=== PATIENT | male | born 1960 | race Caucasian/White ===

== ENCOUNTER 2021-01-10 09:31 | Emergency (ER) | payer BC ==
--- NOTE | 2021-01-10 10:50 | EDM.PDOC ---
ED HPI GENERAL MEDICAL PROBLEM - General Chief Complaint: Respiratory Problem Stated Complaint: SOB Time Seen by Provider: 01/10/21 10:39 Source of Information: Reports: Patient History Limitations: Reports: No Limitations - History of Present Illness INITIAL COMMENTS - FREE TEXT/NARRATIVE: 60-year-old male presents to the ED in the company of his . 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 It is suspect that he has new lesions on CT scan done yesterday concerning for possible metastatic disease. He is still receiving chemotherapy. He has had radiation therapy to bones. Recent cryotherapy to one of his right ribs which contained a tumor with suspect irritation of the pleura and lung lining in this area. His dyspnea seems to be worse since that procedure was carried out by Dr. Parnell interventional radiologist in [place]. Is also had microwave treatments to liver metastatic disease. I suspect he is maxed out his radiotherapy doses. Has a slight cough in the mornings. No blood. No fever or chills. COVID-19 screen at the clinic this morning was negative. He had a CT scan of his chest done yesterday which we will try and obtain from [facility]. His main complaint is dyspnea and he has some insight that this is due to anxiety. His O2 sats are 94 to 96% on room air. Patient did have a Covid test yesterday was negative. Onset: Gradual (Has been having dyspneic events off and on for the last 3 to 4 weeks.) Onset Date: 12/15/20 Duration: Week(s):, Intermittent Location: Reports: Chest (With no chest pain) Quality: Reports: Other Severity: Moderate (Subjective dyspnea) Improves with: Reports: None Worsens with: Reports: Movement (Seems to be a little worse with movement) Context: Reports: Other (Dyspnea comes on even with rest.). Denies: Activity, Exercise, Lifting, Sick Contact, Trauma Associated Symptoms: Reports: Cough, Loss of Appetite, Malaise, Shortness of Breath, Weakness. 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: Other (see below) (Only his regular medications.) - Related Data Allergies Allergy/AdvReac Type Severity Reaction Status Date / Time chlorhexidine Allergy Itching Verified 01/10/21 10:05 Home Meds: Home Meds Furosemide 20 mg PO DAILY 01/10/21 [History] Furosemide 40 mg PO DAILY #30 tablet 01/10/21 [Rx] Gabapentin [Neurontin] 300 mg PO TID 01/10/21 [History] LORazepam [Ativan] 0.5 mg PO Q8H #21 tab 01/10/21 [Rx] Spironolactone [Aldactone] 25 mg PO ONETIME #30 tab 01/10/21 [Rx] dexAMETHasone [Dexamethasone] 4 - 6 mg PO Q8H 01/10/21 [History] oxyCODONE 5 mg PO ASDIRECTED PRN 01/10/21 [History] Past Medical History Oncologic (Cancer) History: Reports: Other (See Below) (Primary rectal adenocarcinoma diagnosed in 2013 with metastatic disease to his liver at that time. He subsequently had chemotherapy for 2 years and I believe radiation as well. Recurrence in the last 2 years and continues chemotherapy, radiation treatment at this time) - Past Surgical History GI Surgical History: Reports: Colostomy (Performed I believe in 2013 with rectal cancer with a abdominal perineal resection. He does have a fistula draining from his sacrum which is somewhat painful. Colostomy has been functioning well), Other (See Below) Other GI Surgeries/Procedures: rectal cancer 2013 Neurological Surgical History: Reports: Other (See Below) Other Neurological Surgeries/Procedures: 22 screws in his spine, spinal cancer Musculoskeletal Surgical History: Reports: Other (See Below) Other Musculoskeletal Surgeries/Procedures:: liver micro-wave oblation Social & Family History - Tobacco Use Tobacco Use Status *Q: Never Tobacco User Second Hand Smoke Exposure: No - Recreational Drug Use Recreational Drug Use: No - Living Situation & Occupation Living situation: Reports: Occupation: Employed ED ROS GENERAL - Review of Systems Review Of Systems: See Below Constitutional: Reports: Malaise, Weakness, Fatigue, Decreased Appetite, Weight Loss. Denies: Fever, Chills HEENT: Reports: Glasses Respiratory: Reports: Shortness of Breath, Cough (Occasional cough usually first thing is in the morning. Sputum normal color with no blood recently) Cardiovascular: Reports: Chest Pain (Right chest wall pain. Had a lesion in one of his ribs recently treated by cryoablation treatment by), Dyspnea on Exertion, Edema (Both lower extremities), Lightheadedness, Orthopnea. Denies: Blood Pressure Problem, Claudication ( IR in [place]), Palpitations Endocrine: Reports: Fatigue GI/Abdominal: Reports: Abdominal Pain, Constipation, Decreased Appetite, Nausea (Nasal problems with constipation.). Denies: Distension, Vomiting : Reports: Frequency, Other (Nocturia x1 usually.) Musculoskeletal: Reports: Neck Pain, Shoulder Pain, Back Pain (Particular upper neck where he has multiple hardware in his upper cervical spine and lower cervical spine from fusion procedure.), Other (12 pain due to metastatic disease to ribs.) Skin: Reports: Bruising (He states that he bruises a little easier than normal) Neurological: Reports: Dizziness, Difficulty Walking, Weakness. Denies: Confusion, Headache, Numbness, Syncope, Tingling Psychiatric: Reports: Depression Hematologic/Lymphatic: Reports: No Symptoms Immunologic: Reports: No Symptoms ED EXAM, GENERAL - Physical Exam Exam: See Below Exam Limited By: No Limitations General Appearance: Alert, WD/WN, Anxious, Mild Distress, Other (Temperature is 35.9 degrees. Heart rate 78 and sinus respiratory is 20 with O2 sats of 99% room air. BP 130/79) Eye Exam: Bilateral Eye: Normal Inspection (No blepharal pallor or scleral icterus), PERRL Throat/Mouth: Normal Inspection, Normal Lips, Normal Teeth, Normal Oropharynx Head: Atraumatic, Normocephalic Neck: Normal Inspection, Supple, Non-Tender, Full Range of Motion. No: Lymphadenopathy (L), Lymphadenopathy (R) Respiratory/Chest: Lungs Clear, Normal Breath Sounds, No Accessory Muscle Use, Respiratory Distress (Tachypnea at rest 20/min with O2 sats of 99%.), Other (Scarring left upper anterior chest from previous Port-A-Cath placement and removal. New Port-A-Cath is right upper anterior chest). No: Decreased Breath Sounds Cardiovascular: Normal Peripheral Pulses, Regular Rate, Rhythm, No Gallop, No Murmur, No Rub. No: No Edema Peripheral Pulses: 0: Posterior Tibial (L) (Ulcers in both lower extremities are obscured by significant edema both lower extremities), Posterior Tibial (R), Dorsalis Pedis (L), Dorsalis Pedis (R), 2+: Carotid (L), Carotid (R) GI/Abdominal: Normal Bowel Sounds, Soft, No Distention, Tender (Tenderness right costal margin with deep inspiration with palpation of his liver. Spleen is not palpable), Other (Ostomy right lower quadrant appears to be draining well.). No: Pelvis Stable, Distended, Guarding, Rigid, Rebound Back Exam: Normal Inspection, Full Range of Motion. No: CVA Tenderness (L), CVA Tenderness (R) Extremities: Normal Inspection, Normal Range of Motion, Non-Tender, Pedal Edema (3+ pitting edema both lower extremities slightly worse on the left as compared to the right.) Neurological: Alert, Oriented, CN II-XII Intact, Normal Cognition Psychiatric: Anxious Skin Exam: Warm, Dry, Intact, Normal Color, No Rash #1 Interpretation EKG Date: 01/10/21 Time: 11:16 Rhythm: NSR Rate (Beats/Min): 64 [place]: Normal P-Wave: Present QRS: Other (Mildly decreased voltage limb leads) ST-T: Other (Nonspecific T wave flattening aVL) QT: Normal EKG Interpretation Comments: Essentially normal ECG Course - Vital Signs Last Recorded V/S: Last Vital Signs Temp 35.9 C L 01/10/21 10:01 Pulse 78 01/10/21 10:01 Resp 20 01/10/21 10:01 BP 130/79 01/10/21 10:01 Pulse Ox 99 01/10/21 10:01 - Orders/Labs/Meds Labs: Laboratory Tests 01/10/21 01/10/21 01/10/21 Range/Units 11:14 11:14 11:14 WBC 7.48 (4.23-9.07) K/mm3 RBC 3.96 L (4.63-6.08) M/mm3 Hgb 12.6 L D (13.7-17.5) gm/dl Hct 40.1 (40.1-51.0) % MCV 101.3 H D (79.0-92.2) fl MCH 31.8 (25.7-32.2) pg MCHC 31.4 L (32.2-35.5) g/dl RDW Std Deviation 74.5 H (35.1-43.9) fL Plt Count 137 L D (163-337) K/mm3 MPV 10.4 (9.4-12.3) fl Neut % (Auto) 88.0 H (34.0-67.9) % Lymph % (Auto) 2.1 L (21.8-53.1) % [place] % (Auto) 9.0 (5.3-12.2) % Eos % (Auto) 0 L (0.8-7.0) Baso % (Auto) 0.0 L (0.1-1.2) % Neut # (Auto) 6.58 H (1.78-5.38) K/mm3 Lymph # (Auto) 0.16 L (1.32-3.57) K/mm3 [place] # (Auto) 0.67 (0.30-0.82) K/mm3 Eos # (Auto) 0.00 L (0.04-0.54) K/mm3 Baso # (Auto) 0.00 L (0.01-0.08) K/mm3 ESR (0-15) mm/hr PT 11.4 (9.7-12.0) SECONDS INR 1.03 APTT 25.8 (21.7-31.4) SECONDS Sodium 139 (136-145) mEq/L Potassium 3.8 (3.5-5.1) mEq/L Chloride 105 (98-107) mEq/L Carbon Dioxide 24 (21-32) mEq/L Anion Gap 13.8 (5-15) BUN 11 (7-18) mg/dL Creatinine 0.6 L (0.7-1.3) mg/dL Est Cr Clr Drug Dosing 115.19 mL/min Estimated GFR (MDRD) > 60 (>60) mL/min BUN/Creatinine Ratio 18.3 H (14-18) Glucose 189 H (70-99) mg/dL Calcium 8.6 (8.5-10.1) mg/dL Magnesium 1.9 (1.8-2.4) mg/dL Total Bilirubin 0.9 (0.2-1.0) mg/dL AST 39 H (15-37) U/L ALT 42 (16-63) U/L Alkaline Phosphatase 178 H (46-116) U/L Lactate Dehydrogenase 268 H (85-227) U/L Troponin I < 0.017 (0.00-0.056) ng/mL C-Reactive Protein 8.8 H* (<1.0) mg/dL NT-Pro-B Natriuret Pep (0-125) pg/mL Total Protein 6.0 L (6.4-8.2) g/dl Albumin 2.4 L (3.4-5.0) g/dl Globulin 3.6 gm/dL Albumin/Globulin Ratio 0.7 L (1-2) 01/10/21 01/10/21 Range/Units 11:14 11:14 WBC (4.23-9.07) K/mm3 RBC (4.63-6.08) M/mm3 Hgb (13.7-17.5) gm/dl Hct (40.1-51.0) % MCV (79.0-92.2) fl MCH (25.7-32.2) pg MCHC (32.2-35.5) g/dl RDW Std Deviation (35.1-43.9) fL Plt Count (163-337) K/mm3 MPV (9.4-12.3) fl Neut % (Auto) (34.0-67.9) % Lymph % (Auto) (21.8-53.1) % [place] % (Auto) (5.3-12.2) % Eos % (Auto) (0.8-7.0) Baso % (Auto) (0.1-1.2) % Neut # (Auto) (1.78-5.38) K/mm3 Lymph # (Auto) (1.32-3.57) K/mm3 [place] # (Auto) (0.30-0.82) K/mm3 Eos # (Auto) (0.04-0.54) K/mm3 Baso # (Auto) (0.01-0.08) K/mm3 ESR 53 H (0-15) mm/hr PT (9.7-12.0) SECONDS INR APTT (21.7-31.4) SECONDS Sodium (136-145) mEq/L Potassium (3.5-5.1) mEq/L Chloride (98-107) mEq/L Carbon Dioxide (21-32) mEq/L Anion Gap (5-15) BUN (7-18) mg/dL Creatinine (0.7-1.3) mg/dL Est Cr Clr Drug Dosing mL/min Estimated GFR (MDRD) (>60) mL/min BUN/Creatinine Ratio (14-18) Glucose (70-99) mg/dL Calcium (8.5-10.1) mg/dL Magnesium (1.8-2.4) mg/dL Total Bilirubin (0.2-1.0) mg/dL AST (15-37) U/L ALT (16-63) U/L Alkaline Phosphatase (46-116) U/L Lactate Dehydrogenase (85-227) U/L Troponin I (0.00-0.056) ng/mL C-Reactive Protein (<1.0) mg/dL NT-Pro-B Natriuret Pep 412 H (0-125) pg/mL Total Protein (6.4-8.2) g/dl Albumin (3.4-5.0) g/dl Globulin gm/dL Albumin/Globulin Ratio (1-2) Meds: Medications Discontinued Medications Generic Name Dose Route Start Last Admin Trade Name Freq PRN Reason Stop Dose Admin Dextrose/Lactated Ringer's 1,000 mls @ 100 mls/hr 01/10/21 11:45 Dextrose 5%-Lactated Ringers IV ASDIRECTED AURA - Radiology Interpretation Free Text/Narrative:: 60-year-old male presents to the ED for evaluation of dyspnea and he has some insight that this may be due to anxiety. Patient was diagnosed with rectal carcinoma in 2013 requiring abdominal perineal resection. He still has a draining fistula from his sacral area which is intermittently painful. He has a colostomy right lower quadrant which has been working well. He had spread of disease to his liver and more recently concerns for metastatic disease to his lungs. CTA of the chest was done yesterday at [facility] and we will try and obtain this report. He is also had ablation of a lesion in one of his lung ribs right side i.e. cryoablation by Dr. Parnell interventional radiologist in the last month and his dyspnea seemed to worsen since that time. Is also had microwave treatments to his liver in the hopes of destroying some of the metastatic disease. Appetite remains fair. My overall impression that there is a good deal of anxiety associate with current symptom complex of dyspnea today. He is tachypneic at 20/min but O2 sats are 99% on room air. Plan access his Port-A-Cath right upper anterior chest for labs. Solitary chest x-ray will be done today. - Re-Assessments/Exams Free Text/Narrative Re-Assessment/Exam: 01/10/21 11:34 x-ray reveals diffuse metastatic disease throughout both lung bonilla. No pleural effusions. Cardiac silhouette appears normal. Questionable multiple mediastinal lymph nodes in the perihilar areas bilaterally. 01/10/21 11:53 over read by radiologist of the chest x-ray reveals diffuse nodular densities seen within both sides of the chest. Focal masslike density is seen within the left upper chest. Masslike densities measure approximately 4.5 cm in size. Largest nodule measures approximately 2.0 cm. Previous surgery is seen within the lower cervical and upper thoracic spine. Right-sided infusion catheter appreciated heart size is normal. Patient did have a CT pulmonary angiogram done at the [facility] yesterday. No pulmonary embolism was identified. He also had Doppler ultrasound of both lower extremities which did not show any DVT. The CT did reveal extensive malignant burden throughout both lungs which is significantly worsened since the last CT of October 11, 2020. Possible new lymphangitic spread of metastatic disease on the left upper lobe and left lung base. The infiltrate in the left upper lobe could also represent conventional pneumonia. There is a new small left-sided pleural effusion. Trace right-sided pleural effusion enlarged hilar and mediastinal lymph nodes are malignant. Upper abdomen is negative extensive postoperative changes surgical changes appreciated in the cervical and thoracic spine. 01/10/21 13:09 White count is 7.48 with a left shift of 88% neutrophils. Hemoglobin is 12.6 with a hematocrit of 40.1. MCV is elevated 101.3. Platelet count is 137,000 which is low normal. PT is 11.4 with an INR of 1.03 PTT is 25.8. Sodium 139 with a potassium of 3.8. Chloride 105 with a bicarb of 24. Anion gap is 13.8. BUN is 11 with a creatinine of 0.6 and a GFR greater than 60. Glucose is elevated at 189. Calcium is 8.6. Magnesium is 1.9. Total bilirubin 0.9 AST minimally elevated at 39 ALT normal at 42 alkaline phosphatase elevated 178 compatible with metastatic disease to his liver. LDH is elevated at 268 troponin I is less than 0.017. C-reactive protein is 8.8. BNP is 412. Total protein is 6.0 with an albumin fraction of 2.4 01/10/21 13:25 I have discussed the finding of labs and CT report from yesterday with the patient and his . I have the sense that they are not well aware of the magnitude of metastatic disease involving his lungs at this point time. They have a follow-up appointment with oncology within the next 10 days. They were to see him on Friday this week but did not attend that appointment. I am going to increase the patient's Lasix to 40 mg in the morning and 20 mg mid afternoon to help with his congestive failure and edema which may relieve some of his sense of suffocation. I believe small dose Ativan 0.5 mg as needed would also be in order. At this time there is not really much else to offer. He is currently on Lasix 20 mg once daily in the morning but also sounds by history is taking one later in the evening which is waking him up at 2 or 3 in the morning often he cannot go back to sleep. We will move this up to 2 or 3:00 in the afternoon to prevent him from waking up so much at night. I have also added Aldactone 25 mg once daily in the morning to provide potassium sparing diuresis. Should have lab work done in a week's time. He plans on meeting up with oncology within that timeframe Departure - Departure Time of Disposition: 13:27 Disposition: Home, Self-Care 01 Condition: Fair Clinical Impression: Mild congestive heart failure, Hypoalbuminemia due to protein-calorie malnutrition, Dependent edema, Primary adenocarcinoma of colon, Metastatic adenocarcinoma Dyspnea Qualifiers: Dyspnea type: shortness of breath Qualified Code(s): R06.02 - Shortness of breath - Discharge Information *PRESCRIPTION DRUG MONITORING PROGRAM REVIEWED*: Not Applicable *COPY OF PRESCRIPTION DRUG MONITORING REPORT IN PATIENT PB: Not Applicable Prescriptions: Spironolactone [Aldactone] 25 mg PO ONETIME #30 tab LORazepam [Ativan] 0.5 mg PO Q8H #21 tab Furosemide 40 mg PO DAILY #30 tablet Instructions: Colorectal Cancer, Shortness of Breath, Adult Referrals: Ovi Juan MD [Primary Care Provider] - Forms: ED Department Discharge Additional Instructions: Evaluation in the emergency room today in regards to increasing shortness of breath or dyspnea even at rest. Looking at the CT scan done yesterday does reveal multiple metastatic nodules in both lung bonilla which is contributing to your shortness of breath. There is a slight excess of fluid in the lungs causing you to have be mildly short of breath as well. I would suggest taking Lasix 40 mg tablet in the morning and continuing your Lasix or furosemide 20 mg once in the afternoon around 1500 hrs. to prevent you from having to be up all night to void. This may improve your sleep. Years serum protein is low as you you are not able to eat enough protein. Return to protein shakes would be advised if you can tolerate this. New medication today was furosemide 40 mg tablet and Aldactone 25 mg tablet were taken once daily in the morning and usually 20 mg tablets in the mid afternoon. I have written a prescription for low-dose Ativan 0.5 mg that you may take when you are feeling very short of breath and/or at nighttime to help sleep. Follow-up with oncologist when able. Sepsis Event Note (ED) - Evaluation Sepsis Screening Result: No Definite Risk - Focused Exam Vital Signs: Vital Signs Temp Pulse Resp BP Pulse Ox 01/10/21 10:01 35.9 C L 78 20 130/79 99
[2021-01-10] MEDS ORDERED: Dextrose 5%-Lactated Ringers 1,000 ML IV SCH (11:45)
--- NOTE | 2021-01-10 11:47 | CR ---
Chest: Portable view of the chest was obtained. Comparison: Prior chest x-ray at 07/16/13. Diffuse nodular densities are seen within both sides of the chest. Focal masslike density is seen within the left upper chest. Masslike density measures approximately 4.5 cm in size. Largest nodule measures approximately 2.0 cm. Previous surgery is seen within the lower cervical and upper thoracic spine. Right-sided infusion catheter is seen. Heart size is normal. Impression: 1. Diffuse pulmonary nodules within both sides of the chest with focal masslike density within the upper left chest. Findings are compatible with metastatic disease. 2. Right-sided infusion catheter. 3. Previous cervical spine and upper thoracic spine surgery. Diagnostic code #9
== END 2021-01-10 13:40 | disposition home or self-care (01) ==
LOC: JD.ED 09:31
DX: I50.9 Heart failure, unspecified (principal); E88.09 Other disorders of plasma-protein metabolism, not elsewhere classified; C18.9 Malignant neoplasm of colon, unspecified; Z88.8 Allergy status to other drugs, medicaments and biological substances; Z79.899 Other long term (current) drug therapy
CPT/HCPCS: 36415; 71045; 71045-26; 80053; 83615; 83735; 83880; 84484; 85025; 85610; 85652; 85730; 86140; 93005; 99285-25

== ENCOUNTER 2021-01-19 10:11 | Emergency (ER) | payer BC ==
[2021-01-19] MEDS ORDERED: Dextrose 5%-0.9% NaCl 1,000 ML IV SCH (10:45)
--- NOTE | 2021-01-19 10:49 | EDM.PDOC ---
ED HPI GENERAL MEDICAL PROBLEM - General Chief Complaint: Gastrointestinal Problem Stated Complaint: ABD PAIN/SENT BY [facility] Time Seen by Provider: 01/19/21 10:30 Source of Information: Reports: Patient History Limitations: Reports: No Limitations - History of Present Illness INITIAL COMMENTS - FREE TEXT/NARRATIVE: 60-year-old male presents to the ED in the accompaniment of his . I had met him last week through the ED. 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 There apparently was metastatic disease in his liver at that time. He did receive initial chemotherapy and subsequently has had microwave therapy to his liver mets metastatic disease as well as alcohol infusions done by interventional radiology into his liver. 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 Chief complaint today is right lower quadrant abdominal pain. His appetite has been limited. No associated fever chills. Has had nausea without vomiting. States that seems to make his right lower quadrant abdominal pain worse if he tries to drink or eat. Colostomy has been functioning but the stool has been a bit more firm. Of note we had increased his Lasix last week due to mild congestive heart failure and dependent edema which is markedly improved. He has chronic hypoalbuminemia. He was seen at the [facility] clinic this morning and sent to the ED for further evaluation of abdominal pain. Pain currently is rating through to his right lower back as well. Onset: Gradual (Off and on for the last 3 days) Onset Date: 01/16/21 Duration: Day(s):, Constant, Getting Worse (Mildly worse today.), Waxing/Waning Location: Reports: Radiates to (Radiates to his right lower back) Quality: Reports: Ache Severity: Moderate Improves with: Reports: None Worsens with: Reports: Eating (Worse with trying to eat or drink.) Context: Denies: Activity, Exercise, Lifting, Sick Contact, Trauma, Other Associated Symptoms: Reports: Headaches, Loss of Appetite, Malaise, Nausea/Vomiting, Shortness of Breath, Weakness (Nausea without vomiting). Denies: No Other Symptoms, Confusion, Chest Pain, Cough, cough w sputum, Diaphoresis, Fever/Chills, Rash, Seizure, Syncope Treatments REFLESHER: Reports: Acetaminophen Bilateral Abdominal Pain Score (Numeric/FACES): 8 - Related Data Allergies Allergy/AdvReac Type Severity Reaction Status Date / Time chlorhexidine Allergy Itching Verified 01/19/21 10:31 Home Meds: Home Meds Furosemide 20 mg PO DAILY 01/10/21 [History] Furosemide 40 mg PO DAILY #30 tablet 01/10/21 [Rx] Gabapentin [Neurontin] 300 mg PO TID 01/10/21 [History] LORazepam [Ativan] 0.5 mg PO Q8H #21 tab 01/10/21 [Rx] Spironolactone [Aldactone] 25 mg PO ONETIME #30 tab 01/10/21 [Rx] dexAMETHasone [Dexamethasone] 4 - 6 mg PO Q8H 01/10/21 [History] oxyCODONE 5 mg PO ASDIRECTED PRN 01/10/21 [History] Ondansetron [Zofran] 4 mg BUCCAL Q6H PRN #12 tab 01/19/21 [Rx] polyethylene glycoL 3350 [MiraLAX] 17 gm PO DAILY #1 canister 01/19/21 [Rx] Past Medical History Gastrointestinal History: Reports: Other (See Below) (Does have right upper quadrant abdominal pain due to metastatic disease to his liver. Colostomy right lower quadrant after abdominal perineal resection carried out in 2013) Oncologic (Cancer) History: Reports: Other (See Below) (Primary rectal adenocarcinoma diagnosed in 2013 with metastatic disease to his liver at that time. He subsequently had chemotherapy for 2 years and I believe radiation as well. Recurrence in the last 2 years and continues chemotherapy, radiation treatment at this time) - Past Surgical History GI Surgical History: Reports: Colostomy (Performed I believe in 2013 with rectal cancer with a abdominal perineal resection. He does have a fistula draining from his sacrum which is somewhat painful. Colostomy has been functioning well), Other (See Below) Other GI Surgeries/Procedures: rectal cancer 2013 Neurological Surgical History: Reports: Other (See Below) Other Neurological Surgeries/Procedures: 22 screws in his spine, spinal cancer Musculoskeletal Surgical History: Reports: Other (See Below) Other Musculoskeletal Surgeries/Procedures:: liver micro-wave oblation Social & Family History - Living Situation & Occupation Living situation: Reports: Occupation: Employed ED ROS GENERAL - Review of Systems Review Of Systems: See Below Constitutional: Reports: Malaise, Weakness, Fatigue, Decreased Appetite, Weight Loss. Denies: Fever, Chills HEENT: Reports: Glasses Respiratory: Reports: Shortness of Breath, Cough. Denies: Wheezing, Pleuritic Chest Pain, Sputum, Hemoptysis (Occasional cough but better since increasing Lasix dosage.) Cardiovascular: Reports: Dyspnea on Exertion, Edema (Did have significant edema both lower extremities which is improved). Denies: Chest Pain, Blood Pressure Problem, Lightheadedness ( with increased doses of Lasix.), Orthopnea, Palpitations Endocrine: Reports: Fatigue GI/Abdominal: Reports: Abdominal Pain (Right upper quadrant abdominal pain), Other ( colostomy right lower quadrant of the abdomen) : Reports: No Symptoms Musculoskeletal: Reports: Back Pain, Other (Static disease to his cervical spine thoracic spine which has been fused surgically as well as treated aggressively with radiation treatments. Has metastatic disease to multiple bones including ribs.) Skin: Reports: Bruising Neurological: Reports: No Symptoms, Dizziness, Difficulty Walking, Weakness. Denies: Confusion, Headache, Syncope Hematologic/Lymphatic: Reports: No Symptoms Immunologic: Reports: No Symptoms ED EXAM, GI/ABD - Physical Exam Exam: See Below Exam Limited By: No Limitations General Appearance: Alert, WD/WN, Mild Distress, Other (He appears volume depleted. Temperature is 35.9 degrees heart rate 98 and sinus respiratory is 20 with O2 sats of 95% room air. BP is 122/96) Eyes: Right: Normal Appearance (Mild blepharal pallor. Very minimal scleral icterus) Throat/Mouth: Normal Lips, Other (Tongue is dry and coated) Head: Atraumatic, Normocephalic Neck: Normal Inspection, Supple, Non-Tender, Full Range of Motion. No: Lym phadenopathy (L), Lymphadenopathy (R) Respiratory/Chest: No Respiratory Distress, No Accessory Muscle Use, Rhonchi Cardiovascular: Normal Peripheral Pulses (Gated rhonchi through both upper anterior lungs.), Regular Rate, Rhythm, No Edema, No Gallop, No Murmur, No Rub GI/Abdominal Exam: Soft, Tender (Minimal tenderness right lower quadrant of the abdomen with palpable cecum. Tenderness right upper quadrant worsened by deep breathing), Abnormal Bowel Sounds (Bowel sounds are mildly hyperactive throughout all 4 quadrants), Hepatomegaly ( compatible with mild hepatomegaly), Other (There is hard firm and greenish colored stool in the ostomy.). No: Splenomegaly (Male) Exam: No Hernia Back Exam: Other (Patient has marked wasting of the musculature of the upper thoracic spine and lower cervical spine with previous surgical fusion and radiotherapy to this area due to metastatic bone disease) Extremities: Normal Inspection, Normal Range of Motion, Non-Tender, No Pedal Edema Neurological: Alert, Oriented, CN II-XII Intact, Normal Cognition Psychiatric: Normal Affect, Normal Mood Skin Exam: Warm, Dry, Intact, Pallor (Slight pallor.) Course - Vital Signs Last Recorded V/S: Last Vital Signs Temp 35.9 C L 01/19/21 10:23 Pulse 55 L 01/19/21 11:00 Resp 12 01/19/21 11:00 BP 120/46 L 01/19/21 11:00 Pulse Ox 100 01/19/21 11:00 - Orders/Labs/Meds Orders: Active Orders 24 hr Category Date Time Status Abdomen 1V Flat [CR] Stat Exams 01/19/21 10:36 Taken Dextrose 5%-0.9% NaCl [Dextrose 5%-Normal Saline] 1,000 Med 01/19/21 10:45 Active ml IV ASDIRECTED Medication Orders Dextrose/Sodium Chloride (Dextrose 5%-Normal Saline) 1,000 mls @ 500 mls/hr IV ASDIRECTED AURA Last Admin: 01/19/21 10:47 Dose: 500 mls/hr Documented by: LANDY Labs: Laboratory Tests 01/19/21 01/19/21 Range/Units 10:53 10:53 WBC 15.15 H (4.23-9.07) K/mm3 RBC 4.52 L (4.63-6.08) M/mm3 Hgb 14.4 D (13.7-17.5) gm/dl Hct 45.1 (40.1-51.0) % MCV 99.8 H (79.0-92.2) fl MCH 31.9 (25.7-32.2) pg MCHC 31.9 L (32.2-35.5) g/dl RDW Std Deviation 65.6 H (35.1-43.9) fL Plt Count 220 D (163-337) K/mm3 MPV 10.6 (9.4-12.3) fl Neut % (Auto) 91.4 H (34.0-67.9) % Lymph % (Auto) 2.3 L (21.8-53.1) % [place] % (Auto) 5.7 (5.3-12.2) % Eos % (Auto) 0 L (0.8-7.0) Baso % (Auto) 0.1 (0.1-1.2) % Neut # (Auto) 13.85 H (1.78-5.38) K/mm3 Lymph # (Auto) 0.35 L (1.32-3.57) K/mm3 [place] # (Auto) 0.86 H (0.30-0.82) K/mm3 Eos # (Auto) 0.00 L (0.04-0.54) K/mm3 Baso # (Auto) 0.01 (0.01-0.08) K/mm3 Sodium 136 (136-145) mEq/L Potassium 3.9 (3.5-5.1) mEq/L Chloride 100 (98-107) mEq/L Carbon Dioxide 26 (21-32) mEq/L Anion Gap 13.9 (5-15) BUN 23 H (7-18) mg/dL Creatinine 0.7 (0.7-1.3) mg/dL Est Cr Clr Drug Dosing 98.74 mL/min Estimated GFR (MDRD) > 60 (>60) mL/min BUN/Creatinine Ratio 32.9 H (14-18) Glucose 308 H (70-99) mg/dL Calcium 8.4 L (8.5-10.1) mg/dL Total Bilirubin 1.1 H (0.2-1.0) mg/dL AST 38 H (15-37) U/L ALT 49 (16-63) U/L Alkaline Phosphatase 241 H (46-116) U/L C-Reactive Protein 4.8 H* (<1.0) mg/dL Total Protein 6.2 L (6.4-8.2) g/dl Albumin 2.7 L (3.4-5.0) g/dl Globulin 3.5 gm/dL Albumin/Globulin Ratio 0.8 L (1-2) Meds: Medications Generic Name Dose Route Start Last Admin Trade Name Freq PRN Reason Stop Dose Admin Dextrose/Sodium Chloride 1,000 mls @ 500 mls/hr 01/19/21 10:45 01/19/21 10:47 Dextrose 5%-Normal Saline IV 500 mls/hr ASDIRECTED AURA Administration Discontinued Medications Generic Name Dose Route Start Last Admin Trade Name Jacqui PRN Reason Stop Dose Admin Heparin Sodium (Porcine) Confirm 01/19/21 13:01 Heparin Sodium 100 Units/Ml 5 Ml Syringe Administered 01/19/21 13:02 Dose 500 units .ROUTE .STK-MED ONE Magnesium Citrate 210 ml 01/19/21 11:43 01/19/21 11:49 Magnesium Citrate Solution 296 Ml Bottle PO 01/19/21 11:44 210 ml ONETIME ONE Administration - Radiology Interpretation Free Text/Narrative:: 60-year-old male presents to the ED for evaluation of right lower quadrant abdominal pain of 3 days duration and gradually getting worse. Seems to be worsened by trying to eat or drink. Patient is known to have diffuse metastatic adenocarcinoma of the rectum first diagnosed in 2013 with metastatic disease to his liver at that time. Subsequently has been continuing chemotherapy and has had radiotherapy to multiple bones particularly lower cervical spine and upper thoracic spine. He has had microwave ablation of tumors within his liver as well as alcohol infusions to tumors within the liver. He continues chemotherapy although it was canceled this week Friday due to his current illness. I increased his Lasix last week due to congestive failure and dependent edema whic h is primarily secondary to hypoalbuminemia. This is worked well to control his edema of lower extremities and he is breathing better as well. I suspect his current abdominal pain is from constipation as there is no signs of a peritoneal irritation on exam. Very active bowel sounds all 4 quadrants. Plan KUB. Routine labs to be performed. IV D5 normal saline at 500 mils an hour. - Re-Assessments/Exams Free Text/Narrative Re-Assessment/Exam: 01/19/21 11:42 WBC count remains mildly elevated at 15.15 with left shift of 91.4% neutrophils. Hemoglobin is 14.4 with hematocrit of 45.1 MCV is elevated at 99.8. Platelet count 220,000. Sodium 136 with a potassium of 3.9. Chloride 100 with a bicarb of 26. Anion gap is 13.9. BUN is elevated at 23 with a creatinine of 0.7 and a GFR greater than 60. Glucose was 308. Calcium is 8.4 bilirubin is 1.1. AST 38 and an ALT of 49. Alkaline phosphatase elevated at 241. C-reactive protein is 4.8 total protein 6.2 with an albumin fraction of 2.7. Albumin fraction is slightly improved from last week at 2.4. KUB reveals increased stool throughout the right hemicolon and transverse colon compatible with constipation. This is likely secondary to increased pain medication and as well as the diuretics last week precipitating constipation and sluggish bowel. There are no air-fluid levels to suggest bowel obstruction. Liver enzymes are elevated due to metastatic disease. Plan I am going to proceed with IV fluids to provide rehydration. He will be given magnesium citrate 7 ounces mixed with 6 ounces of juice of choice by mouth once to provide bowel cleanse. He has been using Metamucil off and on for constipation but I would recommend MiraLAX powder 17 g once daily as it is much more effective in preventing constipation. The plan will be to discontinue his afternoon Lasix dose and continue with Lasix 40 mg in the morning with Aldactone 25 mg it seems to be working well. CRP has come down from 8.8 last week to 4.8 today. It is chronically elevated due to metastatic cancer lungs liver bones etc. 01/19/21 12:54 patient was able to drink down the 7 ounces of magnesium citrate without any issues. He has completed a liter of IV fluids and therefore will be discharged to home. We will discontinue his afternoon or p.m. dose of Lasix since his edema in lower extremities is markedly improved. Also the increased diuresis is contributed to the development of constipation. He was placed on MiraLAX powder 17 g once daily to prevent further constipation issues. I did write a prescription for Zofran 4 mg sublingual x12 tablets to be used as needed every 6 hours. Departure - Departure Time of Disposition: 13:04 Disposition: Home, Self-Care 01 Condition: Fair Clinical Impression: Constipation by delayed colonic transit, Adenocarcinoma carcinomatosis Abdominal pain Qualifiers: Abdominal location: right lower quadrant Qualified Code(s): R10.31 - Right lower quadrant pain - Discharge Information *PRESCRIPTION DRUG MONITORING PROGRAM REVIEWED*: Not Applicable *COPY OF PRESCRIPTION DRUG MONITORING REPORT IN PATIENT PB: Not Applicable Prescriptions: polyethylene glycoL 3350 [MiraLAX] 17 gm PO DAILY #1 canister Ondansetron [Zofran] 4 mg BUCCAL Q6H PRN #12 tab PRN Reason: nausea or vomiting Instructions: Constipation, Adult, Abdominal Pain, Adult, [id number] Referrals: Ovi Juan MD [Primary Care Provider] - Forms: ED Department Discharge Additional Instructions: Evaluation in the emergency room today in regards to persistent right lower quadrant abdominal pain off and on for the last 3 days. Appreciable fairly firm stool in your colostomy bag. Recent increase in pain medication and diuretics or water pills are felt to have caused constipation which is evident on your x- ray of your abdomen. There was no sign of bowel obstruction. There is increased stool throughout the right hemicolon and the transverse colon going across the upper abdomen compatible with constipation. Treatment for this was started in the emergency room with magnesium citrate or Citroma taking 7 ounces mixed with 6 ounces of juice of choice by mouth once. This will take anywhere between 1 and 4 hours to start to work and provide bowel cleanse. Suggest discontinuing Metamucil. Use MiraLAX powder in its place 17 g or 1 scoop daily which will work well to prevent constipation secondary to narcotic use and the diuretics. Also I think it is okay to discontinue the afternoon dose of diuretic furosemide 20 mg strength. Continue with the morning dose of Lasix 40 mg with Aldactone 25 mg as it is working well to control edema in your lower extremities and lungs. Your protein in your blood today was a bit better than last week from 2.4-2.7. Normal normal is above 3. Once albumin level is above 3 there is much less chance of leaking fluid into your lungs and lower extremities. No other changes to medications at this time. Try and resume diet as able once bowel cleanse occurs. You were given a liter of fluid while in the ED as you were mildly dehydrated from not being able to eat well. Sepsis Event Note (ED) - Evaluation Sepsis Screening Result: No Definite Risk - Focused Exam Vital Signs: Vital Signs Temp Pulse Resp BP Pulse Ox 01/19/21 11:00 55 L 12 120/46 L 100 01/19/21 10:23 35.9 C L 98 20 122/96 H 95 - My Orders Last 24 Hours: My Active Orders 01/19/21 10:36 Abdomen 1V Flat [CR] Stat 01/19/21 10:45 Dextrose 5%-0.9% NaCl [Dextrose 5%-Normal Saline] 1,000 ml IV ASDIRECTED - Assessment/Plan Last 24 Hours: My Active Orders 01/19/21 10:36 Abdomen 1V Flat [CR] Stat 01/19/21 10:45 Dextrose 5%-0.9% NaCl [Dextrose 5%-Normal Saline] 1,000 ml IV ASDIRECTED
[2021-01-19] MEDS ORDERED: Magnesium Citrate Solution 296 ML Bottle PO ONE (11:43)
--- NOTE | 2021-01-20 07:10 | CR ---
Abdomen: Supine view of the abdomen was obtained. Comparison: Prior abdominal x-ray of 12/02/13. Bowel gas pattern appears within normal limits. Bony structures are within normal limits for the patient's age. Vague nodular densities are seen within the chest. No discrete soft tissue abnormality is seen. Surgical anastomotic sutures are seen within the pelvis. Impression: 1. Nodular densities within the chest which have been described on previous chest x-ray performed on 01/10/21. 2. Nothing acute is otherwise appreciated on supine abdominal x-ray. Diagnostic code #2
== END 2021-01-19 13:05 | disposition home or self-care (01) ==
LOC: JD.ED 10:11
DX: K59.01 Slow transit constipation (principal); C80.0 Disseminated malignant neoplasm, unspecified; R23.1 Pallor; Z88.8 Allergy status to other drugs, medicaments and biological substances
CPT/HCPCS: 36415; 74018; 80053; 85025; 86140; 99284; A9270; J1642; J7042